=== PATIENT | female | born 1980 | race Hispanic/Latino ===

== ENCOUNTER 2019-11-02 18:16 | Inpatient (IN) | payer OTHER, SELFPAY ==
[~2019-11-02] VITALS: Ht 162.6 cm; Wt 62.7 kg
[2019-11-02] VITALS (13 sets, daily range): BP systolic 100–128; BP diastolic 51–80; PULSE 64–79; RESP 10–17; TEMP 97
[2019-11-02] MEDS ORDERED: ONDANSETRON HCL 4 MG/2 ML VIAL ONE ×2 (18:44→22:37)
[2019-11-02] MEDS ORDERED: CEFAZOLIN SODIUM 1 GM VIAL ONE (18:44)
[2019-11-02] MEDS ORDERED: MORPHINE SULFATE 4 MG/1ML SYG ONE (18:45)
[2019-11-02] MEDS ORDERED: POTASSIUM CHLORIDE 20 MEQ ERTAB PO SCH (20:45)
[2019-11-02] MEDS ORDERED: SODIUM CHLORIDE 0.9% 1000ML 1,000 ML IV SCH (20:46)
[2019-11-02] MEDS ORDERED: DIPHENHYDRAMINE HCL 25 MG CAPSULE PO PRN (21:00)
[2019-11-02] MEDS ORDERED: ACETAMINOPHEN 325 MG TAB PO PRN ×2 (21:00)
[2019-11-02] MEDS ORDERED: ONDANSETRON HCL 4 MG/2 ML VIAL IV PRN (21:00)
[2019-11-02] MEDS ORDERED: NITROGLYCERIN 0.4 MG SL TAB SL PRN (21:00)
[2019-11-02] MEDS ORDERED: LIDOCAINE PF 2% 5ML ABBOJECT ONE (21:30)
[2019-11-02] MEDS ORDERED: SUCCINYLCHOLINE 200MG/10ML SYR ONE (21:30)
[2019-11-02] MEDS ORDERED: MIDAZOLAM HCL 1 MG/ML 2ML VIAL ONE (21:30)
[2019-11-02] MEDS ORDERED: PROPOFOL 10 MG/ML 20ML VIAL IV ONE ×2 (21:30→22:59)
[2019-11-02] MEDS ORDERED: ROCURONIUM 10MG/1ML SYR 10 MG/ML ML ONE (21:31)
[2019-11-02] MEDS ORDERED: FENTANYL CITRATE PF 50 MCG/1 ML 2ML VIAL ONE (21:31)
[2019-11-02] MEDS ORDERED: VANCOMYCIN HCL 1 GM VIAL ONE (21:46)
[2019-11-02] MEDS ORDERED: NEOMY SULF/POLYMYXIN B SULFATE 1 ML AMPUL IR ONE (22:10)
[2019-11-02] MEDS ORDERED: BUPIVACAINE/EPI/PF 0.5% 30ML VIAL IJ ONE (22:21)
[2019-11-02] MEDS ORDERED: DEXAMETHASONE SOD PHOSPHATE 10MG/ML 1ML VIAL ONE (22:37)
[2019-11-02] MEDS ORDERED: NEOSTIGMINE 5MG/5ML SYR IV ONE (22:38)
[2019-11-02] MEDS ORDERED: GLYCOPYRROLATE 1 MG/5 ML SYRINGE ONE (22:38)
[2019-11-02] MEDS ORDERED: MEPERIDINE-PF 25 MG/ML SYG ONE ×3 (23:11→23:34)
[2019-11-02] MEDS ORDERED: KETOROLAC TROMETHAMINE 30MG/ML ONE ×2 (23:31→23:33)
[2019-11-03] VITALS (12 sets, daily range): BP systolic 91–109; BP diastolic 50–72; PULSE 61–98; RESP 16–18; TEMP 97.5–97.7
[2019-11-03] MEDS: FAMOTIDINE/PF 20 MG/2 ML VIAL IV SCH ×2 (01:20→10:06)
[2019-11-03] MEDS: LACTATED RINGERS 1000ML 1,000 ML IV SCH ×2 (01:30→06:38)
[2019-11-03] MEDS ORDERED: OXYCODONE/ACETAMIN 5/325MG TAB PO PRN (01:30)
[2019-11-03] MEDS: CEFAZOLIN SODIUM 1 GM VIAL IVP SCH ×3 (03:01→17:04)
[2019-11-03] MEDS: KETOROLAC TROMETHAMINE 30MG/ML IV SCH ×2 (03:03→10:00)
--- NOTE | 2019-11-03 10:41 | NUR ---
CHART CHECK COMPLETED. Pt IS A 39 Y.O. FEMALE ADMITTED SECONDARY TO RIGHT PATELLAR FX. Pt DENIES PMHX. Pt CURRENTLY ON REGULAR TEXTURE, THIN LIQUIDS. SKILLED SPEECH THERAPY IS NOT WARRANTED AT THIS TIME. Addendum: 11/03/19 at 1043 by CANDICE FOSTER, SPT ST Amended: Links added.
--- NOTE | 2019-11-03 12:30 | NUR ---
[facility] CM spoke to pt discussed dc plans. Pt is independent prior to admission, lives at home with sister in law. Denies any equipments/services. Feels safe to go back home, still drives, family able to assist with transportation and needs as necessary. Pt is a selfpay, undocumented, [facility] assisting, given community [employer] packet. DC plan to home once stable. CM to cont to follow up. Addendum: 11/03/19 at 1232 by BERT JANG LVN CM Amended: Links added.
--- NOTE | 2019-11-03 17:47 | NUR ---
PT LEFT VIA WHEELCHAIR IN PVT CAR, WITH RT. KNEE IMMOBILIZER , F/U APPT SCHEDULED, ANTIBIOTIC SENT TO [facility] IN [address] PT IS A/A X 3, DP TO RIGHT KNEE PRESENT, NO COMPLAINT OF PAIN, DRESSING DRY AND INTACT.
== END 2019-11-03 18:00 | disposition home or self-care (01) | DRG 516 ==
LOC: EDH 18:16 → EDHIP 18:17 → EDBD 18:17 → 3BH 11-03 00:16
PROVIDERS: ADMIT Internal Medicine; ATTEND Internal Medicine
PROC: 0QSD04Z Reposition Right Patella with Internal Fixation Device, Open Approach (ICD-10-PCS; principal; 2019-11-02 21:47)
DX: S82.001B Unspecified fracture of right patella, initial encounter for open fracture type I or II (principal); N39.0 Urinary tract infection, site not specified; E87.6 Hypokalemia; D72.829 Elevated white blood cell count, unspecified; F17.210 Nicotine dependence, cigarettes, uncomplicated; F11.90 Opioid use, unspecified, uncomplicated; W10.8XXA Fall (on) (from) other stairs and steps, initial encounter; Y93.89 Activity, other specified; Y92.098 Other place in other non-institutional residence as the place of occurrence of the external cause; Y99.8 Other external cause status; Z91.81 History of falling; Z82.49 Family history of ischemic heart disease and other diseases of the circulatory system

== ENCOUNTER 2019-11-04 05:56 | Emergency (ER) | payer SELFPAY ==
[~2019-11-04 05:56] MED LIST: CEPH-578 PO
[2019-11-04] MEDS ORDERED: HYDROCODONE/ACETAMINOPHEN 10/325 MG TAB ONE (06:20)
[2019-11-04] MEDS ORDERED: KETOROLAC TROMETHAMINE 60 MG/2 ML VIAL ONE (06:20)
== END 2019-11-04 07:33 | disposition home or self-care (01) ==
LOC: EDH 05:56
DX: M25.561 Pain in right knee (principal); S82.001S Unspecified fracture of right patella, sequela; X58.XXXS Exposure to other specified factors, sequela; Z72.0 Tobacco use
CPT/HCPCS: 73562; 96372; 99283; J1885